=== PATIENT | female | born 1990 | race African-American/Black ===

== ENCOUNTER 2018-10-08 13:40 | Emergency (ER) | payer OTHER ==
[~2018-10-08] VITALS: Ht 170.2 cm; Wt 94.5 kg
[2018-10-08 13:52] VITALS: BP 127/69; TEMP 98.4
[2018-10-08] MEDS ORDERED: PRENATAL (14:53)
[2018-10-08] MEDS ORDERED: VITAMIN D 400400 IU PO (14:54)
[2018-10-08] MEDS ORDERED: NATURAL IRON65 MG (14:54)
[2018-10-08 15:47] VITALS: PULSE 84
== END 2018-10-08 15:49 | disposition home or self-care (01) ==
LOC: COL.ER 13:40 → LDRO 13:40 → EDSTATUS 13:47 → COL.ER 15:49
DX: O26.892 Other specified pregnancy related conditions, second trimester (principal); R10.2 Pelvic and perineal pain; Z3A.15 15 weeks gestation of pregnancy

== ENCOUNTER 2018-11-27 08:15 | Outpatient (RCR) | payer OTHER ==
[~2018-11-27 08:15] MED LIST: NATURAL IRON65 MG; PRENATAL; VITAMIN D 400400 IU PO
== END 2018-12-23 | disposition home or self-care (01) ==
LOC: MKS.ESL.PT
DX: O99.89 Other specified diseases and conditions complicating pregnancy, childbirth and the puerperium (principal); M54.5 Low back pain; G89.29 Other chronic pain; Z3A.01 Less than 8 weeks gestation of pregnancy; Z87.39 Personal history of other diseases of the musculoskeletal system and connective tissue